=== PATIENT | male | born 1940 | race Caucasian/White ===

== ENCOUNTER 2017-12-14 07:00 | Inpatient (IN) ==
[2017-12-14] MEDS ORDERED: ALPRAZolam 0.25 MG TABLET PO PRN (08:23)
[2017-12-14] MEDS ORDERED: ALUMINUM/MAGNES/SIMETH MAX STR 30 ML UDCUP PO PRN (08:23)
[2017-12-14] MEDS ORDERED: PROMETHAZINE INJ 25 MG in SODIUM CHLORIDE 0.9% 50 ML IV PRN (08:23)
[2017-12-14] MEDS ORDERED: diphenhydrAMINE CAP 25 MG CAPSULE PO PRN (08:23)
[2017-12-14] MEDS ORDERED: MYLANTA/LIDO VISC 2:1 300 ML BOTTLE SWISH/SPIT PRN (08:23)
[2017-12-14] MEDS ORDERED: guaiFENesin 200 MG/10 ML UDCUP PO PRN (08:23)
[2017-12-14] MEDS ORDERED: chlorproMAZINE INJ 25 MG in SODIUM CHLORIDE 0.9% 100 ML IV PRN (08:23)
[2017-12-14] MEDS ORDERED: BENZTROPINE 2 MG/2 ML AMP IV PRN (08:23)
[2017-12-14] MEDS ORDERED: chlorproMAZINE 25 MG TABLET PO PRN (08:23)
[2017-12-14] MEDS ORDERED: MYLANTA/LIDO VISC 2:1 300 ML BOTTLE SWISH/SWAL PRN (08:23)
[2017-12-14] MEDS ORDERED: ONDANSETRON 4 MG/2 ML VIAL IV PRN (08:23)
[2017-12-14] MEDS ORDERED: chlorproMAZINE INJ 50 MG in SODIUM CHLORIDE 0.9% 100 ML IV PRN (08:23)
[2017-12-14] MEDS ORDERED: LOPERAMIDE 2 MG CAPSULE PO PRN ×2 (08:23)
[2017-12-14] MEDS ORDERED: traMADol 50 MG TABLET PO PRN (08:23)
[2017-12-14] MEDS ORDERED: MAGNESIUM HYDROXIDE SUSP 30 ML UDCUP PO PRN (08:23)
[2017-12-14] MEDS ORDERED: DEXAMETHASONE INJ 10 MG in SODIUM CHLORIDE 0.9% 50 ML IV ONE (12:30)
[2017-12-14] MEDS ORDERED: PALONOSETRON 0.25 MG/5 ML VIAL IV ONE (12:30)
[2017-12-14] MEDS ORDERED: DEXTROSE 5% IV ONE (13:00)
[2017-12-14] MEDS ORDERED: ARSENIC TRIOXIDE IV ONE (13:00)
[2017-12-14 13:54] LABS: Eosinophils % 0.5 % (0.00-10.9); Hematocrit 29.8 VOL% (42.0-52.0); Hemoglobin 10.3 GM/DL (14.0-18.0); Lymphocytes % 46.4 % (21.2-54.2); Mean Corpuscular HGB Conc 34.6 GM/DL (32-36); Mean Corpuscular Hemoglobin 35 PG (27-34); Mean Corpuscular Volume 100.3 FL (87-102); Mean Platelet Volume 10.6 FL (9.6-12.0); Monocytes # 0.1 10*3/uL (0.11-0.8); Monocytes % 3.4 % (1.7-12.7); Neutrophils % 49.7 % (38.7-73.9); Red Blood Count 2.97 MC/CUMM (3.8-5.5); Red Cell Distribution Width 14.5 % (9.3-17.3); White Blood Count 2.1 T/CUMM (4-12)
[2017-12-14 14:02] LABS: Platelet Count 80 T/CUMM (130-400)
[2017-12-14 14:23] LABS: Albumin 4.1 G/DL (3.4-5.0); Bilirubin,Total 2.1 MG/DL (0.2-1.0); Calcium 8.9 MG/DL (8.5-10.1); Osmolality,Calculated 282.5 MOS/KG (273-304); Potassium 4.2 MMOL/L (3.5-5.1); Total Protein 7.6 G/DL (6.4-8.3); Uric Acid 4.6 MG/DL (3.5-7.2)
[2017-12-14 14:35] LABS: INR 1.1; PT Patient Result 11.3 SECS
[2017-12-14] MEDS: TRETINOIN 10 MG CAPSULE PO SCH ×2 (14:49→21:16)
[2017-12-14 15:51] LABS: Eosinophils 1 % (0-10); Lymphocytes 47 % (20-55); Segmented Neutrophils 52 % (50-85); Total Cells Counted 100
[2017-12-14 15:52] LABS: Platelet Estimate Decreased; Polychromasia Few
[2017-12-14] MEDS: metFORMIN 500 MG TABLET PO SCH (17:34)
[2017-12-14] MEDS: SODIUM CHLORIDE 0.9% 1,000 ML IV SCH (17:34)
[2017-12-14] MEDS: CIPROFLOXACIN 500 MG TABLET PO SCH (20:55)
[2017-12-14] MEDS: TAMSULOSIN 0.4 MG CAPSULE PO SCH (20:55)
[2017-12-14] MEDS: TEMAZEPAM 7.5 MG CAPSULE PO PRN ×2 (20:55→23:16)
[2017-12-14 21:42] LABS: Apearance,Urine CLEAR (Clear); Bilirubin,Urine Negative (Negative); Blood, Urine Negative (Negative); Glucose,Urine (UA) >=500 mg/dL (Negative); Ketones,Urine Negative (Negative); Mucus,Urine Occasional /LPF (Occasional); Nitrite,Urine Negative (Negative); Protein,Urine Negative; RBC,Urine <1 /HPF (0-4); Squamous Epithelial Cell,Urine Occasional /HPF (0-10); Urine Color Yellow (Yellow); Urine Specific Gravity 1.025 (1.001-1.035); WBC,Urine <1 /HPF (0-6)
[2017-12-15 07:31] LABS: Hematocrit 25.8 VOL% (42.0-52.0); Hemoglobin 9.6 GM/DL (14.0-18.0); Immature Granulocytes % 0.5 %; Immature Granulocytes Absolute 0.01 #; Lymphocytes # 0.4 10*3/uL (1.4-4.0); Lymphocytes % 18.7 % (21.2-54.2); Mean Corpuscular HGB Conc 37.2 GM/DL (32-36); Mean Corpuscular Hemoglobin 35 PG (27-34); Mean Corpuscular Volume 95.2 FL (87-102); Mean Platelet Volume 10.8 FL (9.6-12.0); Monocytes # 0.1 10*3/uL (0.11-0.8); Monocytes % 2.9 % (1.7-12.7); Neutrophils # 1.6 10*3/uL (1.4-7.4); Neutrophils % 77.9 % (38.7-73.9); Platelet Count 64 T/CUMM (130-400); Red Blood Count 2.71 MC/CUMM (3.8-5.5); Red Cell Distribution Width 14.5 % (9.3-17.3); White Blood Count 2.1 T/CUMM (4-12)
[2017-12-15 07:48] LABS: Hypochromasia 1+
[2017-12-15 07:49] LABS: Ovalocytes Slight; Platelet Estimate Decreased
[2017-12-15] MEDS ORDERED: MAGNESIUM SULF RIDER 2 GM in PREMIX 1 EACH IV ONE (08:16)
[2017-12-15] MEDS: SERTRALINE 100 MG TABLET PO SCH (08:54)
[2017-12-15] MEDS: FINASTERIDE 5 MG TABLET PO SCH (08:54)
[2017-12-15] MEDS: METOPROLOL SUCCINATE XL 25 MG TABLET PO SCH (08:55)
[2017-12-15] MEDS: LISINOPRIL 10 MG TABLET PO SCH (08:55)
[2017-12-15] MEDS: TAMSULOSIN 0.4 MG CAPSULE PO SCH ×2 (08:56→20:01)
[2017-12-15] MEDS: metFORMIN 500 MG TABLET PO SCH ×2 (08:56→18:15)
[2017-12-15] MEDS: CIPROFLOXACIN 500 MG TABLET PO SCH ×2 (08:56→20:01)
[2017-12-15] MEDS: TRETINOIN 10 MG CAPSULE PO SCH ×2 (08:57→20:01)
[2017-12-15] MEDS ORDERED: METOPROLOL SUCCINATE XL 25 MG TABLET PO SCH (09:00)
[2017-12-15] MEDS: SODIUM CHLORIDE 0.9% 1,000 ML IV SCH (15:46)
[2017-12-15] MEDS: TEMAZEPAM 7.5 MG CAPSULE PO PRN ×2 (20:01→22:00)
[2017-12-16 05:14] LABS: Hematocrit 23.1 VOL% (42.0-52.0); Hemoglobin 8.3 GM/DL (14.0-18.0); Immature Granulocytes % 0.5 %; Immature Granulocytes Absolute 0.01 #; Lymphocytes # 0.8 10*3/uL (1.4-4.0); Lymphocytes % 36.1 % (21.2-54.2); Mean Corpuscular HGB Conc 35.9 GM/DL (32-36); Mean Corpuscular Hemoglobin 35 PG (27-34); Mean Corpuscular Volume 97.1 FL (87-102); Mean Platelet Volume 9.9 FL (9.6-12.0); Monocytes % 1.8 % (1.7-12.7); Neutrophils # 1.4 10*3/uL (1.4-7.4); Neutrophils % 61.6 % (38.7-73.9); Platelet Count 47 T/CUMM (130-400); Red Blood Count 2.38 MC/CUMM (3.8-5.5); Red Cell Distribution Width 15.2 % (9.3-17.3); White Blood Count 2.2 T/CUMM (4-12)
[2017-12-16 05:47] LABS: Albumin 3.1 G/DL (3.4-5.0); Hypochromasia 1+; Osmolality,Calculated 289.4 MOS/KG (273-304); Ovalocytes Slight; Platelet Estimate Decreased; Potassium 4.3 MMOL/L (3.5-5.1); Total Protein 5.6 G/DL (6.4-8.3)
[2017-12-16 05:48] LABS: Microcytosis Slight
[2017-12-16] MEDS ORDERED: SODIUM CHLORIDE 0.9% 1,000 ML IV PRN (07:43)
[2017-12-16] MEDS: TRETINOIN 10 MG CAPSULE PO SCH ×2 (08:22→20:44)
[2017-12-16] MEDS: FINASTERIDE 5 MG TABLET PO SCH (08:23)
[2017-12-16] MEDS: metFORMIN 500 MG TABLET PO SCH ×2 (08:24→18:21)
[2017-12-16] MEDS: SERTRALINE 100 MG TABLET PO SCH (08:24)
[2017-12-16] MEDS: LISINOPRIL 10 MG TABLET PO SCH (08:24)
[2017-12-16] MEDS: METOPROLOL SUCCINATE XL 25 MG TABLET PO SCH (08:24)
[2017-12-16] MEDS: CIPROFLOXACIN 500 MG TABLET PO SCH ×2 (08:25→20:44)
[2017-12-16] MEDS: TAMSULOSIN 0.4 MG CAPSULE PO SCH ×2 (08:25→20:45)
[2017-12-16] MEDS ORDERED: ARSENIC TRIOXIDE IV ONE (08:30)
[2017-12-16] MEDS ORDERED: DEXTROSE 5% IV ONE (08:30)
[2017-12-16] MEDS: TEMAZEPAM 7.5 MG CAPSULE PO PRN (21:01)
[2017-12-16] MEDS: SODIUM CHLORIDE 0.9% 1,000 ML IV SCH (22:35)
[2017-12-17 05:54] LABS: Eosinophils % 0.9 % (0.00-10.9); Hematocrit 29.8 VOL% (42.0-52.0); Hemoglobin 10.3 GM/DL (14.0-18.0); Immature Granulocytes % 1.9 %; Immature Granulocytes Absolute 0.04 #; Lymphocytes # 1.1 10*3/uL (1.4-4.0); Lymphocytes % 50.2 % (21.2-54.2); Mean Corpuscular HGB Conc 34.6 GM/DL (32-36); Mean Corpuscular Hemoglobin 35 PG (27-34); Mean Corpuscular Volume 100.7 FL (87-102); Mean Platelet Volume 10.9 FL (9.6-12.0); Monocytes # 0.1 10*3/uL (0.11-0.8); Monocytes % 4.2 % (1.7-12.7); NRBC # 0.02 10*3/uL; Neutrophils # 0.9 10*3/uL (1.4-7.4); Neutrophils % 42.8 % (38.7-73.9); Red Blood Count 2.96 MC/CUMM (3.8-5.5); Red Cell Distribution Width 15.9 % (9.3-17.3); White Blood Count 2.1 T/CUMM (4-12)
[2017-12-17 06:07] LABS: Platelet Count 55 T/CUMM (130-400)
[2017-12-17 06:15] LABS: Hypochromasia 1+; Ovalocytes Slight; Platelet Estimate Decreased
[2017-12-17 06:17] LABS: Microcytosis Slight
[2017-12-17] MEDS: TRETINOIN 10 MG CAPSULE PO SCH ×2 (09:05→20:16)
[2017-12-17] MEDS: SERTRALINE 100 MG TABLET PO SCH (09:06)
[2017-12-17] MEDS: FINASTERIDE 5 MG TABLET PO SCH (09:07)
[2017-12-17] MEDS: metFORMIN 500 MG TABLET PO SCH ×2 (09:07→17:50)
[2017-12-17] MEDS: METOPROLOL SUCCINATE XL 25 MG TABLET PO SCH (09:07)
[2017-12-17] MEDS: TAMSULOSIN 0.4 MG CAPSULE PO SCH ×2 (09:08→20:17)
[2017-12-17] MEDS: CIPROFLOXACIN 500 MG TABLET PO SCH ×2 (09:08→20:17)
[2017-12-17] MEDS: LISINOPRIL 10 MG TABLET PO SCH (09:17)
[2017-12-17] MEDS: ARSENIC TRIOXIDE IV SCH (10:25)
[2017-12-17] MEDS: DEXTROSE 5% IV SCH (10:25)
[2017-12-17] MEDS ORDERED: DOCUSATE SODIUM 100 MG CAPSULE PO PRN (10:36)
[2017-12-17] MEDS: SODIUM CHLORIDE 0.9% 1,000 ML IV SCH (20:29)
[2017-12-17] MEDS: TEMAZEPAM 7.5 MG CAPSULE PO PRN (20:29)
[2017-12-18 05:21] LABS: Basophils % 0.4 % (0.0-0.8); Eosinophils % 0.8 % (0.00-10.9); Hematocrit 28.8 VOL% (42.0-52.0); Hemoglobin 10.1 GM/DL (14.0-18.0); Immature Granulocytes % 4.6 %; Immature Granulocytes Absolute 0.11 #; Lymphocytes # 0.7 10*3/uL (1.4-4.0); Lymphocytes % 29.5 % (21.2-54.2); Mean Corpuscular HGB Conc 35.1 GM/DL (32-36); Mean Corpuscular Hemoglobin 34 PG (27-34); Mean Corpuscular Volume 97.6 FL (87-102); Mean Platelet Volume 11.2 FL (9.6-12.0); Monocytes # 0.2 10*3/uL (0.11-0.8); Monocytes % 6.3 % (1.7-12.7); NRBC # 0.02 10*3/uL; Neutrophils # 1.4 10*3/uL (1.4-7.4); Neutrophils % 58.4 % (38.7-73.9); Platelet Count 62 T/CUMM (130-400); Red Blood Count 2.95 MC/CUMM (3.8-5.5); Red Cell Distribution Width 15.6 % (9.3-17.3); White Blood Count 2.4 T/CUMM (4-12)
[2017-12-18 05:54] LABS: Albumin 3.1 G/DL (3.4-5.0); Bilirubin,Total 0.6 MG/DL (0.2-1.0); Calcium 7.8 MG/DL (8.5-10.1); Osmolality,Calculated 286.4 MOS/KG (273-304); Potassium 4.4 MMOL/L (3.5-5.1); Total Protein 5.7 G/DL (6.4-8.3)
[2017-12-18 06:54] LABS: Hypochromasia 1+; Macrocytosis 1+; Polychromasia Slight
[2017-12-18 06:55] LABS: Elliptocytes 1+
[2017-12-18] MEDS: TAMSULOSIN 0.4 MG CAPSULE PO SCH ×2 (08:51→20:38)
[2017-12-18] MEDS: FINASTERIDE 5 MG TABLET PO SCH (08:51)
[2017-12-18] MEDS: metFORMIN 500 MG TABLET PO SCH ×2 (08:51→17:13)
[2017-12-18] MEDS: TRETINOIN 10 MG CAPSULE PO SCH ×2 (08:51→20:38)
[2017-12-18] MEDS: METOPROLOL SUCCINATE XL 25 MG TABLET PO SCH (08:51)
[2017-12-18] MEDS: CIPROFLOXACIN 500 MG TABLET PO SCH ×2 (08:53→20:38)
[2017-12-18] MEDS: LISINOPRIL 10 MG TABLET PO SCH (08:53)
[2017-12-18] MEDS: MAGNESIUM OXIDE 400 MG TABLET PO SCH ×2 (08:53→20:38)
[2017-12-18] MEDS: SERTRALINE 100 MG TABLET PO SCH (08:53)
[2017-12-18] MEDS: SODIUM CHLORIDE 0.45% 1,000 ML IV SCH (09:02)
[2017-12-18] MEDS: DEXTROSE 5% IV SCH (14:14)
[2017-12-18] MEDS: ARSENIC TRIOXIDE IV SCH (14:14)
[2017-12-18] MEDS: SODIUM CHLORIDE 0.9% 1,000 ML IV SCH (17:33)
[2017-12-18] MEDS: TEMAZEPAM 7.5 MG CAPSULE PO PRN (20:38)
[2017-12-19 04:45] LABS: Eosinophils % 0.4 % (0.00-10.9); Hemoglobin 10.6 GM/DL (14.0-18.0); Immature Granulocytes % 8.4 %; Immature Granulocytes Absolute 0.21 #; Lymphocytes # 0.5 10*3/uL (1.4-4.0); Lymphocytes % 19.3 % (21.2-54.2); Mean Corpuscular HGB Conc 36.6 GM/DL (32-36); Mean Corpuscular Hemoglobin 35 PG (27-34); Mean Corpuscular Volume 95.7 FL (87-102); Mean Platelet Volume 10.9 FL (9.6-12.0); Monocytes # 0.2 10*3/uL (0.11-0.8); Monocytes % 7.6 % (1.7-12.7); Neutrophils # 1.6 10*3/uL (1.4-7.4); Neutrophils % 64.3 % (38.7-73.9); Red Blood Count 3.03 MC/CUMM (3.8-5.5); White Blood Count 2.5 T/CUMM (4-12)
[2017-12-19 04:46] LABS: Platelet Count 56 T/CUMM (130-400)
[2017-12-19 06:37] LABS: Band Neutrophils 1 % (0-10); Hypochromasia 1+; Lymphocytes 20 % (20-55); Macrocytosis Slight; Nucleated Red Blood Cells 1 (0-5); Platelet Estimate Decreased; Polychromasia Slight; Segmented Neutrophils 72 % (50-85); Total Cells Counted 100
[2017-12-19] MEDS: TRETINOIN 10 MG CAPSULE PO SCH ×2 (10:23→20:21)
[2017-12-19] MEDS: MAGNESIUM OXIDE 400 MG TABLET PO SCH ×2 (10:23→20:21)
[2017-12-19] MEDS: LISINOPRIL 10 MG TABLET PO SCH (10:23)
[2017-12-19] MEDS: METOPROLOL SUCCINATE XL 25 MG TABLET PO SCH (10:23)
[2017-12-19] MEDS: CIPROFLOXACIN 500 MG TABLET PO SCH ×2 (10:24→20:21)
[2017-12-19] MEDS: FINASTERIDE 5 MG TABLET PO SCH (10:24)
[2017-12-19] MEDS: SERTRALINE 100 MG TABLET PO SCH (10:24)
[2017-12-19] MEDS: TAMSULOSIN 0.4 MG CAPSULE PO SCH ×2 (10:24→20:21)
[2017-12-19] MEDS: metFORMIN 500 MG TABLET PO SCH ×2 (10:24→17:17)
[2017-12-19] MEDS: DEXTROSE 5% IV SCH (11:12)
[2017-12-19] MEDS: ARSENIC TRIOXIDE IV SCH (11:12)
[2017-12-19] MEDS: SODIUM CHLORIDE 0.45% 1,000 ML IV SCH (11:19)
[2017-12-19] MEDS: ACETAMINOPHEN 325 MG TABLET PO PRN (17:17)
[2017-12-19] MEDS: TEMAZEPAM 7.5 MG CAPSULE PO PRN (20:21)
[2017-12-20 06:13] LABS: Eosinophils % 0.4 % (0.00-10.9); Hematocrit 29.4 VOL% (42.0-52.0); Hemoglobin 10.7 GM/DL (14.0-18.0); Immature Granulocytes % 14.9 %; Immature Granulocytes Absolute 0.37 #; Lymphocytes # 0.4 10*3/uL (1.4-4.0); Lymphocytes % 15.7 % (21.2-54.2); Mean Corpuscular HGB Conc 36.4 GM/DL (32-36); Mean Corpuscular Hemoglobin 35 PG (27-34); Mean Corpuscular Volume 96.1 FL (87-102); Mean Platelet Volume 11.1 FL (9.6-12.0); Monocytes # 0.4 10*3/uL (0.11-0.8); Monocytes % 15.3 % (1.7-12.7); NRBC # 0.02 10*3/uL; Neutrophils # 1.3 10*3/uL (1.4-7.4); Neutrophils % 53.7 % (38.7-73.9); Red Blood Count 3.06 MC/CUMM (3.8-5.5); White Blood Count 2.5 T/CUMM (4-12)
[2017-12-20 06:16] LABS: Platelet Count 60 T/CUMM (130-400)
[2017-12-20 06:40] LABS: Band Neutrophils 2 % (0-10); Hypochromasia Slight; Lymphocytes 21 % (20-55); Macrocytosis Slight; Nucleated Red Blood Cells 1 (0-5); Ovalocytes Slight; Platelet Estimate Decreased; Segmented Neutrophils 61 % (50-85); Total Cells Counted 100
[2017-12-20 06:45] LABS: Bilirubin,Total 1.6 MG/DL (0.2-1.0); Calcium 8.2 MG/DL (8.5-10.1); Potassium 3.9 MMOL/L (3.5-5.1); Total Protein 6.4 G/DL (6.4-8.3)
[2017-12-20] MEDS: TAMSULOSIN 0.4 MG CAPSULE PO SCH ×2 (10:11→20:06)
[2017-12-20] MEDS: CIPROFLOXACIN 500 MG TABLET PO SCH ×2 (10:11→20:06)
[2017-12-20] MEDS: metFORMIN 500 MG TABLET PO SCH ×2 (10:11→17:32)
[2017-12-20] MEDS: MAGNESIUM OXIDE 400 MG TABLET PO SCH ×2 (10:11→20:05)
[2017-12-20] MEDS: METOPROLOL SUCCINATE XL 25 MG TABLET PO SCH (10:11)
[2017-12-20] MEDS: TRETINOIN 10 MG CAPSULE PO SCH ×2 (10:11→20:06)
[2017-12-20] MEDS: FINASTERIDE 5 MG TABLET PO SCH (10:12)
[2017-12-20] MEDS: SERTRALINE 100 MG TABLET PO SCH (10:12)
[2017-12-20] MEDS: LISINOPRIL 10 MG TABLET PO SCH (10:12)
[2017-12-20] MEDS: DOCUSATE SODIUM 100 MG CAPSULE PO SCH ×2 (10:12→20:06)
[2017-12-20] MEDS: SODIUM CHLORIDE 0.45% 1,000 ML IV SCH (10:20)
[2017-12-20] MEDS: DEXTROSE 5% IV SCH (10:26)
[2017-12-20] MEDS: ARSENIC TRIOXIDE IV SCH (10:26)
[2017-12-20] MEDS: ACETAMINOPHEN 325 MG TABLET PO PRN (15:14)
[2017-12-20] MEDS: TEMAZEPAM 7.5 MG CAPSULE PO PRN (22:05)
[2017-12-21 07:44] LABS: Eosinophils % 0.6 % (0.00-10.9); Hematocrit 28.1 VOL% (42.0-52.0); Hemoglobin 9.8 GM/DL (14.0-18.0); Immature Granulocytes % 30.1 %; Immature Granulocytes Absolute 1.02 #; Lymphocytes # 0.5 10*3/uL (1.4-4.0); Lymphocytes % 15.6 % (21.2-54.2); Mean Corpuscular HGB Conc 34.9 GM/DL (32-36); Mean Corpuscular Hemoglobin 34 PG (27-34); Mean Corpuscular Volume 96.9 FL (87-102); Mean Platelet Volume 10.9 FL (9.6-12.0); Monocytes # 0.2 10*3/uL (0.11-0.8); Monocytes % 6.5 % (1.7-12.7); Neutrophils # 1.6 10*3/uL (1.4-7.4); Neutrophils % 47.2 % (38.7-73.9); Platelet Count 68 T/CUMM (130-400); Red Cell Distribution Width 14.9 % (9.3-17.3); White Blood Count 3.4 T/CUMM (4-12)
[2017-12-21 09:07] LABS: Band Neutrophils 10 % (0-10); Lymphocytes 43 % (20-55); Nucleated Red Blood Cells 1 (0-5); Platelet Estimate Decreased; Segmented Neutrophils 44 % (50-85); Total Cells Counted 100
[2017-12-21 09:08] LABS: Anisocytosis 1+; Polychromasia Slight
[2017-12-21] MEDS: TRETINOIN 10 MG CAPSULE PO SCH ×2 (09:22→20:54)
[2017-12-21] MEDS: METOPROLOL SUCCINATE XL 25 MG TABLET PO SCH (09:22)
[2017-12-21] MEDS: DOCUSATE SODIUM 100 MG CAPSULE PO SCH ×2 (09:23→20:54)
[2017-12-21] MEDS: metFORMIN 500 MG TABLET PO SCH ×2 (09:23→17:25)
[2017-12-21] MEDS: TAMSULOSIN 0.4 MG CAPSULE PO SCH ×2 (09:23→20:54)
[2017-12-21] MEDS: SERTRALINE 100 MG TABLET PO SCH (09:24)
[2017-12-21] MEDS: FINASTERIDE 5 MG TABLET PO SCH (09:24)
[2017-12-21] MEDS: LISINOPRIL 10 MG TABLET PO SCH (09:24)
[2017-12-21] MEDS: CIPROFLOXACIN 500 MG TABLET PO SCH ×2 (09:24→20:54)
[2017-12-21] MEDS: MAGNESIUM OXIDE 400 MG TABLET PO SCH ×2 (09:24→20:53)
[2017-12-21] MEDS: SODIUM CHLORIDE 0.45% 1,000 ML IV SCH (09:26)
[2017-12-21] MEDS: DEXTROSE 5% IV SCH (10:52)
[2017-12-21] MEDS: ARSENIC TRIOXIDE IV SCH (10:52)
[2017-12-21] MEDS: TEMAZEPAM 7.5 MG CAPSULE PO PRN (21:00)
[2017-12-22 05:07] LABS: Eosinophils # 0.4 10*3/uL (0.0-0.87); Eosinophils % 17.1 % (0.00-10.9); Hematocrit 25.9 VOL% (42.0-52.0); Hemoglobin 9.1 GM/DL (14.0-18.0); Immature Granulocytes % 8.8 %; Immature Granulocytes Absolute 0.22 #; Lymphocytes # 0.6 10*3/uL (1.4-4.0); Lymphocytes % 25.5 % (21.2-54.2); Mean Corpuscular HGB Conc 35.1 GM/DL (32-36); Mean Corpuscular Hemoglobin 34 PG (27-34); Mean Corpuscular Volume 97.4 FL (87-102); Mean Platelet Volume 10.3 FL (9.6-12.0); Monocytes # 0.3 10*3/uL (0.11-0.8); Monocytes % 13.1 % (1.7-12.7); Neutrophils # 0.9 10*3/uL (1.4-7.4); Neutrophils % 35.5 % (38.7-73.9); Platelet Count 68 T/CUMM (130-400); Red Blood Count 2.66 MC/CUMM (3.8-5.5); White Blood Count 2.5 T/CUMM (4-12)
[2017-12-22 05:53] LABS: Eosinophils 2 % (0-10); Lymphocytes 59 % (20-55); Myelocytes 1 %; Segmented Neutrophils 29 % (50-85); Total Cells Counted 100
[2017-12-22 05:54] LABS: Atypical Lymphocytes Few
[2017-12-22 05:55] LABS: Ovalocytes Few; Polychromasia Slight
[2017-12-22 05:56] LABS: Hypochromasia Slight; Macrocytosis Slight; Platelet Estimate Decreased
[2017-12-22] MEDS: TRETINOIN 10 MG CAPSULE PO SCH ×2 (08:36→21:07)
[2017-12-22] MEDS: METOPROLOL SUCCINATE XL 25 MG TABLET PO SCH (08:36)
[2017-12-22] MEDS: DOCUSATE SODIUM 100 MG CAPSULE PO SCH ×2 (08:37→21:07)
[2017-12-22] MEDS: FINASTERIDE 5 MG TABLET PO SCH (08:37)
[2017-12-22] MEDS: MAGNESIUM OXIDE 400 MG TABLET PO SCH ×2 (08:37→21:06)
[2017-12-22] MEDS: metFORMIN 500 MG TABLET PO SCH ×2 (08:37→17:07)
[2017-12-22] MEDS: TAMSULOSIN 0.4 MG CAPSULE PO SCH ×2 (08:38→21:07)
[2017-12-22] MEDS: LISINOPRIL 10 MG TABLET PO SCH (08:38)
[2017-12-22] MEDS: CIPROFLOXACIN 500 MG TABLET PO SCH ×2 (08:38→21:07)
[2017-12-22] MEDS: ARSENIC TRIOXIDE IV SCH (10:14)
[2017-12-22] MEDS: DEXTROSE 5% IV SCH (10:14)
[2017-12-22] MEDS: SODIUM CHLORIDE 0.45% 1,000 ML IV SCH (10:14)
[2017-12-22] MEDS: SERTRALINE 100 MG TABLET PO SCH (10:34)
[2017-12-22] MEDS: TEMAZEPAM 7.5 MG CAPSULE PO PRN (21:17)
[2017-12-23 06:01] LABS: Albumin 2.7 G/DL (3.4-5.0); Bilirubin,Total 1.1 MG/DL (0.2-1.0); Calcium 8.3 MG/DL (8.5-10.1); Osmolality,Calculated 281.4 MOS/KG (273-304); Potassium 4.2 MMOL/L (3.5-5.1); Total Protein 6.1 G/DL (6.4-8.3)
[2017-12-23] MEDS: METOPROLOL SUCCINATE XL 25 MG TABLET PO SCH (09:10)
[2017-12-23] MEDS: metFORMIN 500 MG TABLET PO SCH ×2 (09:10→18:23)
[2017-12-23] MEDS: FINASTERIDE 5 MG TABLET PO SCH (09:10)
[2017-12-23] MEDS: LISINOPRIL 10 MG TABLET PO SCH (09:10)
[2017-12-23] MEDS: VORICONAZOLE 200 MG TABLET PO SCH (09:10)
[2017-12-23] MEDS: CIPROFLOXACIN 500 MG TABLET PO SCH ×2 (09:10→20:07)
[2017-12-23] MEDS: SERTRALINE 100 MG TABLET PO SCH (09:10)
[2017-12-23] MEDS: TRETINOIN 10 MG CAPSULE PO SCH ×2 (09:10→20:06)
[2017-12-23] MEDS: DOCUSATE SODIUM 100 MG CAPSULE PO SCH ×2 (09:11→20:07)
[2017-12-23] MEDS: TAMSULOSIN 0.4 MG CAPSULE PO SCH ×2 (09:11→20:07)
[2017-12-23] MEDS: MAGNESIUM OXIDE 400 MG TABLET PO SCH ×2 (09:11→20:07)
[2017-12-23] MEDS: SODIUM CHLORIDE 0.45% 1,000 ML IV SCH (09:11)
[2017-12-23 12:07] LABS: Basophils % 0.7 % (0.0-0.8); Eosinophils # 0.3 10*3/uL (0.0-0.87); Eosinophils % 9.5 % (0.00-10.9); Hematocrit 28.5 VOL% (42.0-52.0); Hemoglobin 9.5 GM/DL (14.0-18.0); Immature Granulocytes % 8.1 %; Immature Granulocytes Absolute 0.23 #; Lymphocytes # 0.6 10*3/uL (1.4-4.0); Lymphocytes % 22.2 % (21.2-54.2); Mean Corpuscular HGB Conc 33.3 GM/DL (32-36); Mean Corpuscular Hemoglobin 34 PG (27-34); Mean Corpuscular Volume 100.7 FL (87-102); Mean Platelet Volume 10.2 FL (9.6-12.0); Monocytes # 0.2 10*3/uL (0.11-0.8); Monocytes % 7.7 % (1.7-12.7); Neutrophils # 1.5 10*3/uL (1.4-7.4); Neutrophils % 51.8 % (38.7-73.9); Platelet Count 77 T/CUMM (130-400); Red Blood Count 2.83 MC/CUMM (3.8-5.5); Red Cell Distribution Width 15.4 % (9.3-17.3); White Blood Count 2.8 T/CUMM (4-12)
[2017-12-23 12:29] LABS: Band Neutrophils 6 % (0-10); Eosinophils 1 % (0-10); Lymphocytes 65 % (20-55); Nucleated Red Blood Cells 1 (0-5); Segmented Neutrophils 14 % (50-85); Total Cells Counted 100
[2017-12-23 12:30] LABS: Atypical Lymphocytes Few; Hypochromasia Slight; Macrocytosis Slight; Ovalocytes Slight; Platelet Estimate Decreased
[2017-12-23] MEDS: DEXTROSE 5% IV SCH (18:23)
[2017-12-23] MEDS: ARSENIC TRIOXIDE IV SCH (18:23)
[2017-12-23] MEDS: TEMAZEPAM 7.5 MG CAPSULE PO PRN (20:07)
[2017-12-24 07:16] LABS: Basophils % 0.3 % (0.0-0.8); Eosinophils # 0.4 10*3/uL (0.0-0.87); Eosinophils % 11.7 % (0.00-10.9); Hematocrit 28.2 VOL% (42.0-52.0); Hemoglobin 9.7 GM/DL (14.0-18.0); Immature Granulocytes % 1.3 %; Immature Granulocytes Absolute 0.04 #; Lymphocytes # 0.8 10*3/uL (1.4-4.0); Lymphocytes % 24.6 % (21.2-54.2); Mean Corpuscular HGB Conc 34.4 GM/DL (32-36); Mean Corpuscular Hemoglobin 34 PG (27-34); Mean Corpuscular Volume 98.3 FL (87-102); Mean Platelet Volume 10.3 FL (9.6-12.0); Monocytes # 0.2 10*3/uL (0.11-0.8); Monocytes % 7.8 % (1.7-12.7); Neutrophils # 1.7 10*3/uL (1.4-7.4); Neutrophils % 54.3 % (38.7-73.9); Platelet Count 81 T/CUMM (130-400); Red Blood Count 2.87 MC/CUMM (3.8-5.5); Red Cell Distribution Width 14.9 % (9.3-17.3); White Blood Count 3.1 T/CUMM (4-12)
[2017-12-24 08:01] LABS: Band Neutrophils 3 % (0-10); Eosinophils 2 % (0-10); Hypochromasia Slight; Lymphocytes 53 % (20-55); Ovalocytes Few; Segmented Neutrophils 22 % (50-85); Total Cells Counted 100
[2017-12-24] MEDS: SODIUM CHLORIDE 0.45% 1,000 ML IV SCH (08:20)
[2017-12-24] MEDS: TRETINOIN 10 MG CAPSULE PO SCH ×2 (08:21→21:08)
[2017-12-24] MEDS: SERTRALINE 100 MG TABLET PO SCH (08:21)
[2017-12-24] MEDS: MAGNESIUM OXIDE 400 MG TABLET PO SCH ×2 (08:21→21:07)
[2017-12-24] MEDS: CIPROFLOXACIN 500 MG TABLET PO SCH ×2 (08:21→21:08)
[2017-12-24] MEDS: DOCUSATE SODIUM 100 MG CAPSULE PO SCH ×2 (08:22→21:07)
[2017-12-24] MEDS: metFORMIN 500 MG TABLET PO SCH ×2 (08:22→21:07)
[2017-12-24] MEDS: METOPROLOL SUCCINATE XL 25 MG TABLET PO SCH (08:22)
[2017-12-24] MEDS: FINASTERIDE 5 MG TABLET PO SCH (08:22)
[2017-12-24] MEDS: VORICONAZOLE 200 MG TABLET PO SCH (08:22)
[2017-12-24] MEDS: LISINOPRIL 10 MG TABLET PO SCH (08:22)
[2017-12-24] MEDS: TAMSULOSIN 0.4 MG CAPSULE PO SCH ×2 (08:22→21:08)
[2017-12-24] MEDS: ARSENIC TRIOXIDE IV SCH (11:16)
[2017-12-24] MEDS: DEXTROSE 5% IV SCH (11:16)
[2017-12-24] MEDS: TEMAZEPAM 7.5 MG CAPSULE PO PRN (21:07)
[2017-12-25] MEDS: SODIUM CHLORIDE 0.45% 1,000 ML IV SCH (02:18)
[2017-12-25 05:28] LABS: Basophils % 0.3 % (0.0-0.8); Eosinophils % 0.6 % (0.00-10.9); Hemoglobin 9.7 GM/DL (14.0-18.0); Immature Granulocytes % 23.6 %; Immature Granulocytes Absolute 0.85 #; Lymphocytes % 27.2 % (21.2-54.2); Mean Corpuscular HGB Conc 35.9 GM/DL (32-36); Mean Corpuscular Hemoglobin 34 PG (27-34); Mean Corpuscular Volume 95.7 FL (87-102); Mean Platelet Volume 9.9 FL (9.6-12.0); Monocytes # 0.3 10*3/uL (0.11-0.8); Monocytes % 8.3 % (1.7-12.7); NRBC # 0.02 10*3/uL; Neutrophils # 1.4 10*3/uL (1.4-7.4); Platelet Count 81 T/CUMM (130-400); Red Blood Count 2.82 MC/CUMM (3.8-5.5); Red Cell Distribution Width 14.8 % (9.3-17.3); White Blood Count 3.6 T/CUMM (4-12)
[2017-12-25 05:52] LABS: Band Neutrophils 9 % (0-10); Lymphocytes 45 % (20-55); Myelocytes 2 %; Platelet Estimate Decreased; Segmented Neutrophils 32 % (50-85); Total Cells Counted 100
[2017-12-25 05:53] LABS: Atypical Lymphocytes Few; Hypochromasia Slight; Ovalocytes Slight
[2017-12-25] MEDS: TRETINOIN 10 MG CAPSULE PO SCH ×2 (08:31→21:03)
[2017-12-25] MEDS: metFORMIN 500 MG TABLET PO SCH ×2 (08:31→17:05)
[2017-12-25] MEDS: MAGNESIUM OXIDE 400 MG TABLET PO SCH ×2 (08:31→21:04)
[2017-12-25] MEDS: METOPROLOL SUCCINATE XL 25 MG TABLET PO SCH (08:32)
[2017-12-25] MEDS: FINASTERIDE 5 MG TABLET PO SCH (08:32)
[2017-12-25] MEDS: SERTRALINE 100 MG TABLET PO SCH (08:32)
[2017-12-25] MEDS: CIPROFLOXACIN 500 MG TABLET PO SCH ×2 (08:32→21:05)
[2017-12-25] MEDS: LISINOPRIL 10 MG TABLET PO SCH (08:32)
[2017-12-25] MEDS: TAMSULOSIN 0.4 MG CAPSULE PO SCH ×2 (08:32→21:04)
[2017-12-25] MEDS: VORICONAZOLE 200 MG TABLET PO SCH (08:32)
[2017-12-25] MEDS: DOCUSATE SODIUM 100 MG CAPSULE PO SCH ×2 (08:32→21:04)
[2017-12-25] MEDS: ARSENIC TRIOXIDE IV SCH (11:48)
[2017-12-25] MEDS: DEXTROSE 5% IV SCH (11:48)
[2017-12-25] MEDS: TEMAZEPAM 7.5 MG CAPSULE PO PRN (21:07)
[2017-12-26 05:24] LABS: Eosinophils # 0.6 10*3/uL (0.0-0.87); Eosinophils % 21.6 % (0.00-10.9); Hematocrit 26.4 VOL% (42.0-52.0); Immature Granulocytes % 16.1 %; Immature Granulocytes Absolute 0.44 #; Lymphocytes # 0.7 10*3/uL (1.4-4.0); Lymphocytes % 23.8 % (21.2-54.2); Mean Corpuscular HGB Conc 34.1 GM/DL (32-36); Mean Corpuscular Hemoglobin 34 PG (27-34); Monocytes # 0.1 10*3/uL (0.11-0.8); Monocytes % 3.3 % (1.7-12.7); Neutrophils % 35.2 % (38.7-73.9); Red Blood Count 2.64 MC/CUMM (3.8-5.5); Red Cell Distribution Width 14.8 % (9.3-17.3); White Blood Count 2.7 T/CUMM (4-12)
[2017-12-26 05:28] LABS: Platelet Count 76 T/CUMM (130-400)
[2017-12-26 06:00] LABS: Albumin 2.6 G/DL (3.4-5.0); Bilirubin,Total 0.7 MG/DL (0.2-1.0); Calcium 8.4 MG/DL (8.5-10.1); Osmolality,Calculated 290.1 MOS/KG (273-304); Potassium 3.5 MMOL/L (3.5-5.1); Total Protein 6.1 G/DL (6.4-8.3)
[2017-12-26 06:30] LABS: Lymphocytes 51 % (20-55); Metamyelocytes 1 %; Myelocytes 9 %; Segmented Neutrophils 30 % (50-85); Total Cells Counted 100
[2017-12-26 06:31] LABS: Atypical Lymphocytes Few; Macrocytosis Slight; Ovalocytes Slight
[2017-12-26 06:32] LABS: Platelet Estimate Decreased
[2017-12-26] MEDS: MAGNESIUM OXIDE 400 MG TABLET PO SCH ×2 (08:50→20:33)
[2017-12-26] MEDS: METOPROLOL SUCCINATE XL 25 MG TABLET PO SCH (08:50)
[2017-12-26] MEDS: TRETINOIN 10 MG CAPSULE PO SCH ×2 (08:50→20:33)
[2017-12-26] MEDS: LISINOPRIL 10 MG TABLET PO SCH (08:51)
[2017-12-26] MEDS: TAMSULOSIN 0.4 MG CAPSULE PO SCH ×2 (08:51→20:33)
[2017-12-26] MEDS: FINASTERIDE 5 MG TABLET PO SCH (08:51)
[2017-12-26] MEDS: DOCUSATE SODIUM 100 MG CAPSULE PO SCH ×2 (08:51→20:33)
[2017-12-26] MEDS: CIPROFLOXACIN 500 MG TABLET PO SCH ×2 (08:51→20:33)
[2017-12-26] MEDS: SERTRALINE 100 MG TABLET PO SCH (08:51)
[2017-12-26] MEDS: metFORMIN 500 MG TABLET PO SCH ×2 (08:52→17:52)
[2017-12-26] MEDS: VORICONAZOLE 200 MG TABLET PO SCH (09:49)
[2017-12-26] MEDS: ARSENIC TRIOXIDE IV SCH (10:58)
[2017-12-26] MEDS: DEXTROSE 5% IV SCH (10:58)
[2017-12-26] MEDS: TEMAZEPAM 7.5 MG CAPSULE PO PRN (20:33)
[2017-12-27 04:59] LABS: Eosinophils % 1.2 % (0.00-10.9); Hematocrit 25.8 VOL% (42.0-52.0); Hemoglobin 8.9 GM/DL (14.0-18.0); Immature Granulocytes % 13.9 %; Immature Granulocytes Absolute 0.46 #; Lymphocytes # 0.8 10*3/uL (1.4-4.0); Lymphocytes % 24.8 % (21.2-54.2); Mean Corpuscular HGB Conc 34.5 GM/DL (32-36); Mean Corpuscular Hemoglobin 34 PG (27-34); Mean Corpuscular Volume 99.6 FL (87-102); Mean Platelet Volume 10.3 FL (9.6-12.0); Monocytes # 0.1 10*3/uL (0.11-0.8); Monocytes % 3.3 % (1.7-12.7); Neutrophils # 1.9 10*3/uL (1.4-7.4); Neutrophils % 56.8 % (38.7-73.9); Platelet Count 75 T/CUMM (130-400); Red Blood Count 2.59 MC/CUMM (3.8-5.5); Red Cell Distribution Width 14.8 % (9.3-17.3); White Blood Count 3.3 T/CUMM (4-12)
[2017-12-27 05:50] LABS: Anisocytosis 1+; Band Neutrophils 16 % (0-10); Eosinophils 2 % (0-10); Lymphocytes 26 % (20-55); Myelocytes 2 %; Segmented Neutrophils 44 % (50-85); Total Cells Counted 100
[2017-12-27 05:51] LABS: Ovalocytes 1+; Poikilocytosis 1+; Polychromasia Slight
[2017-12-27] MEDS: MAGNESIUM OXIDE 400 MG TABLET PO SCH ×2 (08:23→20:35)
[2017-12-27] MEDS: METOPROLOL SUCCINATE XL 25 MG TABLET PO SCH (08:23)
[2017-12-27] MEDS: VORICONAZOLE 200 MG TABLET PO SCH (08:24)
[2017-12-27] MEDS: LISINOPRIL 10 MG TABLET PO SCH (08:24)
[2017-12-27] MEDS: DOCUSATE SODIUM 100 MG CAPSULE PO SCH ×2 (08:24→20:35)
[2017-12-27] MEDS: TAMSULOSIN 0.4 MG CAPSULE PO SCH ×2 (08:24→20:35)
[2017-12-27] MEDS: TRETINOIN 10 MG CAPSULE PO SCH ×2 (08:25→20:35)
[2017-12-27] MEDS: FINASTERIDE 5 MG TABLET PO SCH (08:25)
[2017-12-27] MEDS: SERTRALINE 100 MG TABLET PO SCH (08:25)
[2017-12-27] MEDS: CIPROFLOXACIN 500 MG TABLET PO SCH ×2 (08:25→20:35)
[2017-12-27] MEDS: metFORMIN 500 MG TABLET PO SCH ×2 (08:25→17:05)
[2017-12-27] MEDS: DEXTROSE 5% IV SCH (11:11)
[2017-12-27] MEDS: ARSENIC TRIOXIDE IV SCH (11:11)
[2017-12-27] MEDS: TEMAZEPAM 7.5 MG CAPSULE PO PRN (20:36)
[2017-12-28 04:32] LABS: Basophils % 0.3 % (0.0-0.8); Eosinophils % 0.9 % (0.00-10.9); Hematocrit 25.5 VOL% (42.0-52.0); Hemoglobin 8.8 GM/DL (14.0-18.0); Immature Granulocytes % 12.2 %; Immature Granulocytes Absolute 0.43 #; Lymphocytes # 0.9 10*3/uL (1.4-4.0); Lymphocytes % 26.7 % (21.2-54.2); Mean Corpuscular HGB Conc 34.5 GM/DL (32-36); Mean Corpuscular Hemoglobin 34 PG (27-34); Mean Corpuscular Volume 98.8 FL (87-102); Monocytes # 0.1 10*3/uL (0.11-0.8); Monocytes % 2.6 % (1.7-12.7); Neutrophils % 57.3 % (38.7-73.9); Platelet Count 81 T/CUMM (130-400); Red Blood Count 2.58 MC/CUMM (3.8-5.5); Red Cell Distribution Width 14.6 % (9.3-17.3); White Blood Count 3.5 T/CUMM (4-12)
[2017-12-28 05:21] LABS: Band Neutrophils 9 % (0-10); Eosinophils 2 % (0-10); Hypochromasia 1+; Lymphocytes 32 % (20-55); Metamyelocytes 1 %; Myelocytes 8 %; Ovalocytes Slight; Platelet Estimate Decreased; Segmented Neutrophils 39 % (50-85); Total Cells Counted 100
[2017-12-28 05:22] LABS: Atypical Lymphocytes Few; Macrocytosis Slight; Polychromasia Slight
[2017-12-28] MEDS: CIPROFLOXACIN 500 MG TABLET PO SCH ×2 (09:48→20:59)
[2017-12-28] MEDS: MAGNESIUM OXIDE 400 MG TABLET PO SCH ×2 (09:48→20:59)
[2017-12-28] MEDS: LISINOPRIL 10 MG TABLET PO SCH (09:48)
[2017-12-28] MEDS: TRETINOIN 10 MG CAPSULE PO SCH ×2 (09:48→20:59)
[2017-12-28] MEDS: METOPROLOL SUCCINATE XL 25 MG TABLET PO SCH (09:48)
[2017-12-28] MEDS: TAMSULOSIN 0.4 MG CAPSULE PO SCH ×2 (09:48→20:59)
[2017-12-28] MEDS: VORICONAZOLE 200 MG TABLET PO SCH (09:49)
[2017-12-28] MEDS: SERTRALINE 100 MG TABLET PO SCH (09:49)
[2017-12-28] MEDS: metFORMIN 500 MG TABLET PO SCH ×2 (09:49→17:50)
[2017-12-28] MEDS: FINASTERIDE 5 MG TABLET PO SCH (09:49)
[2017-12-28] MEDS: DOCUSATE SODIUM 100 MG CAPSULE PO SCH ×2 (09:49→20:59)
[2017-12-28] MEDS: ARSENIC TRIOXIDE IV SCH (11:16)
[2017-12-28] MEDS: DEXTROSE 5% IV SCH (11:16)
[2017-12-28] MEDS: TEMAZEPAM 7.5 MG CAPSULE PO PRN (20:59)
[2017-12-29 05:28] LABS: Eosinophils % 1.2 % (0.00-10.9); Hematocrit 25.8 VOL% (42.0-52.0); Hemoglobin 8.7 GM/DL (14.0-18.0); Immature Granulocytes % 11.5 %; Immature Granulocytes Absolute 0.37 #; Lymphocytes # 0.9 10*3/uL (1.4-4.0); Lymphocytes % 28.2 % (21.2-54.2); Mean Corpuscular HGB Conc 33.7 GM/DL (32-36); Mean Corpuscular Hemoglobin 34 PG (27-34); Mean Corpuscular Volume 100.8 FL (87-102); Mean Platelet Volume 9.6 FL (9.6-12.0); Monocytes # 0.1 10*3/uL (0.11-0.8); Monocytes % 2.2 % (1.7-12.7); Neutrophils # 1.8 10*3/uL (1.4-7.4); Neutrophils % 56.9 % (38.7-73.9); Platelet Count 78 T/CUMM (130-400); Red Blood Count 2.56 MC/CUMM (3.8-5.5); Red Cell Distribution Width 14.8 % (9.3-17.3); White Blood Count 3.2 T/CUMM (4-12)
[2017-12-29 05:59] LABS: Band Neutrophils 5 % (0-10); Hypochromasia Slight; Lymphocytes 36 % (20-55); Metamyelocytes 1 %; Microcytosis Slight; Ovalocytes Few; Platelet Estimate Decreased; Polychromasia Slight; Segmented Neutrophils 55 % (50-85); Tear Drop Cells Slight; Total Cells Counted 100
[2017-12-29] MEDS: VORICONAZOLE 200 MG TABLET PO SCH (09:28)
[2017-12-29] MEDS: MAGNESIUM OXIDE 400 MG TABLET PO SCH ×2 (09:29→20:33)
[2017-12-29] MEDS: metFORMIN 500 MG TABLET PO SCH ×2 (09:29→17:20)
[2017-12-29] MEDS: LISINOPRIL 10 MG TABLET PO SCH (09:29)
[2017-12-29] MEDS: FINASTERIDE 5 MG TABLET PO SCH (09:29)
[2017-12-29] MEDS: TRETINOIN 10 MG CAPSULE PO SCH ×2 (09:29→20:34)
[2017-12-29] MEDS: SERTRALINE 100 MG TABLET PO SCH (09:29)
[2017-12-29] MEDS: DOCUSATE SODIUM 100 MG CAPSULE PO SCH ×2 (09:29→20:33)
[2017-12-29] MEDS: ARSENIC TRIOXIDE IV SCH (09:30)
[2017-12-29] MEDS: TAMSULOSIN 0.4 MG CAPSULE PO SCH ×2 (09:30→20:34)
[2017-12-29] MEDS: DEXTROSE 5% IV SCH (09:30)
[2017-12-29] MEDS: METOPROLOL SUCCINATE XL 25 MG TABLET PO SCH (09:30)
[2017-12-29] MEDS: TEMAZEPAM 7.5 MG CAPSULE PO PRN (20:33)
[2017-12-30 05:33] LABS: Basophils % 0.7 % (0.0-0.8); Eosinophils % 1.4 % (0.00-10.9); Hematocrit 25.4 VOL% (42.0-52.0); Immature Granulocytes Absolute 0.31 #; Lymphocytes # 0.8 10*3/uL (1.4-4.0); Lymphocytes % 28.7 % (21.2-54.2); Mean Corpuscular HGB Conc 35.4 GM/DL (32-36); Mean Corpuscular Hemoglobin 35 PG (27-34); Mean Corpuscular Volume 97.3 FL (87-102); Mean Platelet Volume 10.4 FL (9.6-12.0); Monocytes # 0.1 10*3/uL (0.11-0.8); NRBC # 0.03 10*3/uL; Neutrophils # 1.5 10*3/uL (1.4-7.4); Neutrophils % 53.2 % (38.7-73.9); Red Blood Count 2.61 MC/CUMM (3.8-5.5); Red Cell Distribution Width 14.8 % (9.3-17.3); White Blood Count 2.8 T/CUMM (4-12)
[2017-12-30 05:38] LABS: Platelet Count 77 T/CUMM (130-400)
[2017-12-30 05:51] LABS: Albumin 2.9 G/DL (3.4-5.0); Bilirubin,Total 0.7 MG/DL (0.2-1.0); Calcium 8.6 MG/DL (8.5-10.1); Osmolality,Calculated 289.3 MOS/KG (273-304); Potassium 3.9 MMOL/L (3.5-5.1); Total Protein 6.2 G/DL (6.4-8.3)
[2017-12-30 06:10] LABS: Band Neutrophils 4 % (0-10); Eosinophils 1 % (0-10); Hypochromasia Slight; Lymphocytes 31 % (20-55); Metamyelocytes 2 %; Microcytosis Slight; Myelocytes 5 %; Segmented Neutrophils 55 % (50-85); Total Cells Counted 100
[2017-12-30 06:11] LABS: Ovalocytes Few; Platelet Estimate Decreased
[2017-12-30] MEDS: METOPROLOL SUCCINATE XL 25 MG TABLET PO SCH (08:48)
[2017-12-30] MEDS: FINASTERIDE 5 MG TABLET PO SCH (08:48)
[2017-12-30] MEDS: TAMSULOSIN 0.4 MG CAPSULE PO SCH ×2 (08:48→20:19)
[2017-12-30] MEDS: MAGNESIUM OXIDE 400 MG TABLET PO SCH ×2 (08:48→20:19)
[2017-12-30] MEDS: VORICONAZOLE 200 MG TABLET PO SCH (08:48)
[2017-12-30] MEDS: SERTRALINE 100 MG TABLET PO SCH (08:49)
[2017-12-30] MEDS: DOCUSATE SODIUM 100 MG CAPSULE PO SCH ×2 (08:50→20:19)
[2017-12-30] MEDS: TRETINOIN 10 MG CAPSULE PO SCH ×2 (08:50→20:19)
[2017-12-30] MEDS: LISINOPRIL 10 MG TABLET PO SCH (08:59)
[2017-12-30] MEDS: metFORMIN 500 MG TABLET PO SCH ×2 (08:59→17:29)
[2017-12-30] MEDS: LACTULOSE 20 GM/30 ML UDCUP PO PRN ×2 (09:00→15:02)
[2017-12-30] MEDS: DEXTROSE 5% IV SCH (10:26)
[2017-12-30] MEDS: ARSENIC TRIOXIDE IV SCH (10:26)
[2017-12-30] MEDS: TEMAZEPAM 7.5 MG CAPSULE PO PRN (20:19)
[2017-12-31 04:07] LABS: Eosinophils # 0.1 10*3/uL (0.0-0.87); Eosinophils % 3.9 % (0.00-10.9); Hematocrit 26.5 VOL% (42.0-52.0); Hemoglobin 9.2 GM/DL (14.0-18.0); Immature Granulocytes % 7.4 %; Immature Granulocytes Absolute 0.21 #; Lymphocytes # 0.6 10*3/uL (1.4-4.0); Lymphocytes % 21.6 % (21.2-54.2); Mean Corpuscular HGB Conc 34.7 GM/DL (32-36); Mean Corpuscular Hemoglobin 34 PG (27-34); Mean Corpuscular Volume 98.5 FL (87-102); Mean Platelet Volume 9.7 FL (9.6-12.0); Monocytes # 0.1 10*3/uL (0.11-0.8); Monocytes % 2.8 % (1.7-12.7); Neutrophils # 1.8 10*3/uL (1.4-7.4); Neutrophils % 64.3 % (38.7-73.9); Red Blood Count 2.69 MC/CUMM (3.8-5.5); Red Cell Distribution Width 14.7 % (9.3-17.3); White Blood Count 2.8 T/CUMM (4-12)
[2017-12-31 04:09] LABS: Platelet Count 91 T/CUMM (130-400)
[2017-12-31 04:57] LABS: Band Neutrophils 1 % (0-10); Eosinophils 3 % (0-10); Lymphocytes 24 % (20-55); Metamyelocytes 1 %; Myelocytes 3 %; Segmented Neutrophils 66 % (50-85); Total Cells Counted 100
[2017-12-31 04:59] LABS: Atypical Lymphocytes Few
[2017-12-31 05:00] LABS: Polychromasia Few
[2017-12-31 05:01] LABS: Hypochromasia Slight; Microcytosis 2+; Platelet Estimate Decreased
[2017-12-31 05:02] LABS: Ovalocytes 1+; Reactive Lymphocytes Few
[2017-12-31] MEDS: metFORMIN 500 MG TABLET PO SCH ×2 (08:29→17:13)
[2017-12-31] MEDS: VORICONAZOLE 200 MG TABLET PO SCH (08:30)
[2017-12-31] MEDS: FINASTERIDE 5 MG TABLET PO SCH (08:30)
[2017-12-31] MEDS: METOPROLOL SUCCINATE XL 25 MG TABLET PO SCH (08:30)
[2017-12-31] MEDS: DOCUSATE SODIUM 100 MG CAPSULE PO SCH ×2 (08:30→21:33)
[2017-12-31] MEDS: TAMSULOSIN 0.4 MG CAPSULE PO SCH ×2 (08:31→21:34)
[2017-12-31] MEDS: LISINOPRIL 10 MG TABLET PO SCH (08:31)
[2017-12-31] MEDS: SERTRALINE 100 MG TABLET PO SCH (08:31)
[2017-12-31] MEDS: MAGNESIUM OXIDE 400 MG TABLET PO SCH ×2 (08:31→21:34)
[2017-12-31] MEDS: DEXAMETHASONE 4 MG TABLET PO SCH ×2 (08:32→21:33)
[2017-12-31] MEDS: TRETINOIN 10 MG CAPSULE PO SCH ×2 (08:32→21:39)
[2017-12-31] MEDS: DEXTROSE 5% IV SCH (10:38)
[2017-12-31] MEDS: ARSENIC TRIOXIDE IV SCH (10:38)
[2017-12-31] MEDS ORDERED: ALTEPLASE 2 MG VIAL IV ONE (17:33)
[2018-01-01 05:15] LABS: Albumin 3.1 G/DL (3.4-5.0); Bilirubin,Total 0.6 MG/DL (0.2-1.0); Calcium 8.3 MG/DL (8.5-10.1); Osmolality,Calculated 294.4 MOS/KG (273-304); Potassium 4.5 MMOL/L (3.5-5.1); Total Protein 6.1 G/DL (6.4-8.3)
[2018-01-01 05:17] LABS: Eosinophils % 0.3 % (0.00-10.9); Hematocrit 26.3 VOL% (42.0-52.0); Immature Granulocytes % 6.5 %; Immature Granulocytes Absolute 0.21 #; Lymphocytes # 0.4 10*3/uL (1.4-4.0); Lymphocytes % 13.7 % (21.2-54.2); Mean Corpuscular HGB Conc 34.2 GM/DL (32-36); Mean Corpuscular Hemoglobin 34 PG (27-34); Mean Corpuscular Volume 98.5 FL (87-102); Mean Platelet Volume 10.6 FL (9.6-12.0); Monocytes # 0.1 10*3/uL (0.11-0.8); Monocytes % 1.6 % (1.7-12.7); NRBC # 0.02 10*3/uL; Neutrophils # 2.5 10*3/uL (1.4-7.4); Neutrophils % 77.9 % (38.7-73.9); Platelet Count 101 T/CUMM (130-400); Red Blood Count 2.67 MC/CUMM (3.8-5.5); Red Cell Distribution Width 14.4 % (9.3-17.3); White Blood Count 3.2 T/CUMM (4-12)
[2018-01-01 06:30] LABS: Anisocytosis 1+; Band Neutrophils 8 % (0-10); Lymphocytes 29 % (20-55); Macrocytosis 3+; Platelet Estimate Decreased; Segmented Neutrophils 62 % (50-85); Total Cells Counted 100
[2018-01-01] MEDS: metFORMIN 500 MG TABLET PO SCH ×2 (08:46→17:26)
[2018-01-01] MEDS: DOCUSATE SODIUM 100 MG CAPSULE PO SCH ×2 (08:47→20:39)
[2018-01-01] MEDS: DEXAMETHASONE 4 MG TABLET PO SCH ×2 (08:47→20:39)
[2018-01-01] MEDS: VORICONAZOLE 200 MG TABLET PO SCH (08:48)
[2018-01-01] MEDS: METOPROLOL SUCCINATE XL 25 MG TABLET PO SCH (08:48)
[2018-01-01] MEDS: MAGNESIUM OXIDE 400 MG TABLET PO SCH ×2 (08:48→20:40)
[2018-01-01] MEDS: FINASTERIDE 5 MG TABLET PO SCH (08:49)
[2018-01-01] MEDS: TAMSULOSIN 0.4 MG CAPSULE PO SCH ×2 (08:57→20:40)
[2018-01-01] MEDS: SERTRALINE 100 MG TABLET PO SCH (08:57)
[2018-01-01] MEDS: LISINOPRIL 10 MG TABLET PO SCH (08:57)
[2018-01-01] MEDS: TRETINOIN 10 MG CAPSULE PO SCH ×2 (08:58→20:38)
[2018-01-01] MEDS: ARSENIC TRIOXIDE IV SCH (12:21)
[2018-01-01] MEDS: DEXTROSE 5% IV SCH (12:21)
[2018-01-01] MEDS: TEMAZEPAM 7.5 MG CAPSULE PO PRN (20:40)
[2018-01-02 05:35] LABS: Eosinophils % 0.3 % (0.00-10.9); Hematocrit 25.1 VOL% (42.0-52.0); Hemoglobin 8.4 GM/DL (14.0-18.0); Immature Granulocytes % 7.7 %; Immature Granulocytes Absolute 0.28 #; Lymphocytes # 0.5 10*3/uL (1.4-4.0); Lymphocytes % 12.3 % (21.2-54.2); Mean Corpuscular HGB Conc 33.5 GM/DL (32-36); Mean Corpuscular Hemoglobin 34 PG (27-34); Mean Corpuscular Volume 101.2 FL (87-102); Mean Platelet Volume 10.5 FL (9.6-12.0); Monocytes # 0.1 10*3/uL (0.11-0.8); Monocytes % 3.8 % (1.7-12.7); Neutrophils # 2.8 10*3/uL (1.4-7.4); Neutrophils % 75.9 % (38.7-73.9); Platelet Count 102 T/CUMM (130-400); Red Blood Count 2.48 MC/CUMM (3.8-5.5); Red Cell Distribution Width 14.9 % (9.3-17.3); White Blood Count 3.7 T/CUMM (4-12)
[2018-01-02 07:51] LABS: Band Neutrophils 2 % (0-10); Lymphocytes 4 % (20-55); Segmented Neutrophils 88 % (50-85); Total Cells Counted 100
[2018-01-02 07:52] LABS: Hypochromasia 1+; Macrocytosis 1+; Platelet Estimate Decreased
[2018-01-02] MEDS: SERTRALINE 100 MG TABLET PO SCH (08:53)
[2018-01-02] MEDS: TRETINOIN 10 MG CAPSULE PO SCH ×2 (08:53→21:05)
[2018-01-02] MEDS: DOCUSATE SODIUM 100 MG CAPSULE PO SCH ×2 (08:53→21:05)
[2018-01-02] MEDS: VORICONAZOLE 200 MG TABLET PO SCH (08:53)
[2018-01-02] MEDS: LISINOPRIL 10 MG TABLET PO SCH (08:53)
[2018-01-02] MEDS: METOPROLOL SUCCINATE XL 25 MG TABLET PO SCH (08:53)
[2018-01-02] MEDS: metFORMIN 500 MG TABLET PO SCH ×2 (08:54→17:35)
[2018-01-02] MEDS: DEXAMETHASONE 4 MG TABLET PO SCH ×2 (08:54→21:05)
[2018-01-02] MEDS: FINASTERIDE 5 MG TABLET PO SCH (08:54)
[2018-01-02] MEDS: TAMSULOSIN 0.4 MG CAPSULE PO SCH ×2 (08:54→21:05)
[2018-01-02] MEDS: MAGNESIUM OXIDE 400 MG TABLET PO SCH ×2 (08:54→21:05)
[2018-01-02] MEDS: DEXTROSE 5% IV SCH (14:33)
[2018-01-02] MEDS: ARSENIC TRIOXIDE IV SCH (14:33)
[2018-01-02] MEDS: TEMAZEPAM 7.5 MG CAPSULE PO PRN (21:05)
[2018-01-03 04:53] LABS: Hematocrit 25.3 VOL% (42.0-52.0); Hemoglobin 8.5 GM/DL (14.0-18.0); Immature Granulocytes % 5.5 %; Immature Granulocytes Absolute 0.21 #; Lymphocytes # 0.4 10*3/uL (1.4-4.0); Lymphocytes % 11.2 % (21.2-54.2); Mean Corpuscular HGB Conc 33.6 GM/DL (32-36); Mean Corpuscular Hemoglobin 34 PG (27-34); Mean Corpuscular Volume 101.2 FL (87-102); Mean Platelet Volume 10.7 FL (9.6-12.0); Monocytes # 0.2 10*3/uL (0.11-0.8); Monocytes % 4.9 % (1.7-12.7); Neutrophils % 78.4 % (38.7-73.9); Platelet Count 114 T/CUMM (130-400); Red Cell Distribution Width 14.7 % (9.3-17.3); White Blood Count 3.8 T/CUMM (4-12)
[2018-01-03 05:27] LABS: Albumin 3.3 G/DL (3.4-5.0); Bilirubin,Total 0.6 MG/DL (0.2-1.0); Calcium 8.3 MG/DL (8.5-10.1); Osmolality,Calculated 294.5 MOS/KG (273-304); Potassium 4.5 MMOL/L (3.5-5.1)
[2018-01-03 06:16] LABS: Band Neutrophils 2 % (0-10); Lymphocytes 19 % (20-55); Segmented Neutrophils 74 % (50-85); Total Cells Counted 100
[2018-01-03 06:27] LABS: Macrocytosis 2+; Platelet Estimate Decreased
[2018-01-03] MEDS: TRETINOIN 10 MG CAPSULE PO SCH ×2 (08:50→21:41)
[2018-01-03] MEDS: LISINOPRIL 10 MG TABLET PO SCH (08:50)
[2018-01-03] MEDS: TAMSULOSIN 0.4 MG CAPSULE PO SCH ×2 (08:50→21:42)
[2018-01-03] MEDS: MAGNESIUM OXIDE 400 MG TABLET PO SCH ×2 (08:50→21:41)
[2018-01-03] MEDS: DOCUSATE SODIUM 100 MG CAPSULE PO SCH ×2 (08:50→21:41)
[2018-01-03] MEDS: VORICONAZOLE 200 MG TABLET PO SCH (08:50)
[2018-01-03] MEDS: DEXAMETHASONE 4 MG TABLET PO SCH ×2 (08:50→21:42)
[2018-01-03] MEDS: SERTRALINE 100 MG TABLET PO SCH (08:51)
[2018-01-03] MEDS: metFORMIN 500 MG TABLET PO SCH ×2 (08:51→16:43)
[2018-01-03] MEDS: METOPROLOL SUCCINATE XL 25 MG TABLET PO SCH (08:51)
[2018-01-03] MEDS: FINASTERIDE 5 MG TABLET PO SCH (08:51)
[2018-01-03] MEDS: ARSENIC TRIOXIDE IV SCH (10:27)
[2018-01-03] MEDS: DEXTROSE 5% IV SCH (10:27)
[2018-01-03] MEDS: TEMAZEPAM 7.5 MG CAPSULE PO PRN (21:41)
[2018-01-04 05:42] LABS: Hematocrit 26.2 VOL% (42.0-52.0); Hemoglobin 8.9 GM/DL (14.0-18.0); Lymphocytes # 0.4 10*3/uL (1.4-4.0); Lymphocytes % 12.8 % (21.2-54.2); Mean Corpuscular Hemoglobin 34 PG (27-34); Mean Corpuscular Volume 100.4 FL (87-102); Mean Platelet Volume 10.6 FL (9.6-12.0); Monocytes # 0.1 10*3/uL (0.11-0.8); Monocytes % 4.2 % (1.7-12.7); NRBC # 0.02 10*3/uL; Neutrophils # 2.7 10*3/uL (1.4-7.4); Platelet Count 129 T/CUMM (130-400); Red Blood Count 2.61 MC/CUMM (3.8-5.5); Red Cell Distribution Width 14.7 % (9.3-17.3); White Blood Count 3.4 T/CUMM (4-12)
[2018-01-04] MEDS: TRETINOIN 10 MG CAPSULE PO SCH ×2 (09:09→20:37)
[2018-01-04] MEDS: DOCUSATE SODIUM 100 MG CAPSULE PO SCH ×2 (09:09→20:36)
[2018-01-04] MEDS: MAGNESIUM OXIDE 400 MG TABLET PO SCH ×2 (09:09→20:36)
[2018-01-04] MEDS: DEXAMETHASONE 4 MG TABLET PO SCH (09:10)
[2018-01-04] MEDS: metFORMIN 500 MG TABLET PO SCH ×2 (09:10→17:12)
[2018-01-04] MEDS: METOPROLOL SUCCINATE XL 25 MG TABLET PO SCH (09:10)
[2018-01-04] MEDS: VORICONAZOLE 200 MG TABLET PO SCH (09:11)
[2018-01-04] MEDS: LISINOPRIL 10 MG TABLET PO SCH (09:11)
[2018-01-04] MEDS: TAMSULOSIN 0.4 MG CAPSULE PO SCH ×2 (09:11→20:36)
[2018-01-04] MEDS: FINASTERIDE 5 MG TABLET PO SCH (09:11)
[2018-01-04] MEDS: SERTRALINE 100 MG TABLET PO SCH (09:11)
[2018-01-04] MEDS: DEXTROSE 5% IV SCH (10:07)
[2018-01-04] MEDS: ARSENIC TRIOXIDE IV SCH (10:07)
[2018-01-04] MEDS: TEMAZEPAM 7.5 MG CAPSULE PO PRN (20:36)
[2018-01-05 05:02] LABS: Eosinophils % 0.8 % (0.00-10.9); Hematocrit 24.9 VOL% (42.0-52.0); Hemoglobin 8.8 GM/DL (14.0-18.0); Immature Granulocytes % 0.8 %; Immature Granulocytes Absolute 0.02 #; Lymphocytes # 0.6 10*3/uL (1.4-4.0); Lymphocytes % 23.9 % (21.2-54.2); Mean Corpuscular HGB Conc 35.3 GM/DL (32-36); Mean Corpuscular Hemoglobin 34 PG (27-34); Mean Corpuscular Volume 97.3 FL (87-102); Mean Platelet Volume 10.6 FL (9.6-12.0); Monocytes # 0.2 10*3/uL (0.11-0.8); NRBC # 0.02 10*3/uL; Neutrophils # 1.6 10*3/uL (1.4-7.4); Neutrophils % 67.5 % (38.7-73.9); Platelet Count 129 T/CUMM (130-400); Red Blood Count 2.56 MC/CUMM (3.8-5.5); Red Cell Distribution Width 14.7 % (9.3-17.3); White Blood Count 2.4 T/CUMM (4-12)
[2018-01-05 05:26] LABS: Albumin 2.9 G/DL (3.4-5.0); Bilirubin,Total 0.4 MG/DL (0.2-1.0); Calcium 7.8 MG/DL (8.5-10.1); Osmolality,Calculated 286.8 MOS/KG (273-304); Potassium 4.6 MMOL/L (3.5-5.1)
[2018-01-05] MEDS: METOPROLOL SUCCINATE XL 25 MG TABLET PO SCH (08:39)
[2018-01-05] MEDS: MAGNESIUM OXIDE 400 MG TABLET PO SCH ×2 (08:39→20:51)
[2018-01-05] MEDS: metFORMIN 500 MG TABLET PO SCH ×2 (08:39→16:58)
[2018-01-05] MEDS: VORICONAZOLE 200 MG TABLET PO SCH (08:39)
[2018-01-05] MEDS: TRETINOIN 10 MG CAPSULE PO SCH ×2 (08:39→20:51)
[2018-01-05] MEDS: SERTRALINE 100 MG TABLET PO SCH (08:40)
[2018-01-05] MEDS: TAMSULOSIN 0.4 MG CAPSULE PO SCH ×2 (08:40→20:51)
[2018-01-05] MEDS: DEXAMETHASONE 4 MG TABLET PO SCH (08:40)
[2018-01-05] MEDS: LISINOPRIL 10 MG TABLET PO SCH (08:40)
[2018-01-05] MEDS: DOCUSATE SODIUM 100 MG CAPSULE PO SCH ×2 (08:40→20:55)
[2018-01-05] MEDS: FINASTERIDE 5 MG TABLET PO SCH (08:41)
[2018-01-05] MEDS: DEXTROSE 5% IV SCH (10:13)
[2018-01-05] MEDS: ARSENIC TRIOXIDE IV SCH (10:13)
[2018-01-05] MEDS: TEMAZEPAM 7.5 MG CAPSULE PO PRN (20:51)
[2018-01-06 06:02] LABS: Hematocrit 25.4 VOL% (42.0-52.0); Hemoglobin 8.9 GM/DL (14.0-18.0); Immature Granulocytes Absolute 0.04 #; Lymphocytes # 0.5 10*3/uL (1.4-4.0); Lymphocytes % 26.3 % (21.2-54.2); Mean Corpuscular Hemoglobin 34 PG (27-34); Mean Corpuscular Volume 96.9 FL (87-102); Mean Platelet Volume 10.1 FL (9.6-12.0); Monocytes # 0.1 10*3/uL (0.11-0.8); Monocytes % 6.1 % (1.7-12.7); Neutrophils # 1.3 10*3/uL (1.4-7.4); Neutrophils % 64.6 % (38.7-73.9); Platelet Count 155 T/CUMM (130-400); Red Blood Count 2.62 MC/CUMM (3.8-5.5); Red Cell Distribution Width 14.9 % (9.3-17.3)
[2018-01-06 06:28] LABS: Anisocytosis Slight; Band Neutrophils 1 % (0-10); Lymphocytes 29 % (20-55); Macrocytosis 2+; Platelet Estimate Normal; Segmented Neutrophils 66 % (50-85); Total Cells Counted 100
[2018-01-06] MEDS: VORICONAZOLE 200 MG TABLET PO SCH (09:19)
[2018-01-06] MEDS: LISINOPRIL 10 MG TABLET PO SCH (09:19)
[2018-01-06] MEDS: metFORMIN 500 MG TABLET PO SCH ×2 (09:19→16:58)
[2018-01-06] MEDS: SERTRALINE 100 MG TABLET PO SCH (09:19)
[2018-01-06] MEDS: FINASTERIDE 5 MG TABLET PO SCH (09:19)
[2018-01-06] MEDS: MAGNESIUM OXIDE 400 MG TABLET PO SCH ×2 (09:19→21:08)
[2018-01-06] MEDS: METOPROLOL SUCCINATE XL 25 MG TABLET PO SCH (09:19)
[2018-01-06] MEDS: TRETINOIN 10 MG CAPSULE PO SCH ×2 (09:20→21:09)
[2018-01-06] MEDS: TAMSULOSIN 0.4 MG CAPSULE PO SCH ×2 (09:20→21:09)
[2018-01-06] MEDS: DOCUSATE SODIUM 100 MG CAPSULE PO SCH ×2 (09:20→21:08)
[2018-01-06] MEDS: DEXAMETHASONE 4 MG TABLET PO SCH (09:20)
[2018-01-06] MEDS: DEXTROSE 5% IV SCH (12:36)
[2018-01-06] MEDS: ARSENIC TRIOXIDE IV SCH (12:36)
[2018-01-06] MEDS: TEMAZEPAM 7.5 MG CAPSULE PO PRN (21:09)
[2018-01-07 05:16] LABS: Eosinophils % 0.5 % (0.00-10.9); Hematocrit 26.8 VOL% (42.0-52.0); Hemoglobin 9.3 GM/DL (14.0-18.0); Immature Granulocytes Absolute 0.02 #; Lymphocytes # 0.5 10*3/uL (1.4-4.0); Mean Corpuscular HGB Conc 34.7 GM/DL (32-36); Mean Corpuscular Hemoglobin 34 PG (27-34); Mean Corpuscular Volume 98.9 FL (87-102); Mean Platelet Volume 10.2 FL (9.6-12.0); Monocytes # 0.1 10*3/uL (0.11-0.8); Monocytes % 4.9 % (1.7-12.7); Neutrophils # 1.4 10*3/uL (1.4-7.4); Neutrophils % 69.6 % (38.7-73.9); Platelet Count 166 T/CUMM (130-400); Red Blood Count 2.71 MC/CUMM (3.8-5.5); Red Cell Distribution Width 14.9 % (9.3-17.3)
[2018-01-07] MEDS: TRETINOIN 10 MG CAPSULE PO SCH ×2 (08:41→20:43)
[2018-01-07] MEDS: METOPROLOL SUCCINATE XL 25 MG TABLET PO SCH (08:42)
[2018-01-07] MEDS: DOCUSATE SODIUM 100 MG CAPSULE PO SCH ×2 (08:42→20:44)
[2018-01-07] MEDS: metFORMIN 500 MG TABLET PO SCH ×2 (08:42→17:35)
[2018-01-07] MEDS: MAGNESIUM OXIDE 400 MG TABLET PO SCH ×2 (08:42→20:44)
[2018-01-07] MEDS: LISINOPRIL 10 MG TABLET PO SCH (08:42)
[2018-01-07] MEDS: TAMSULOSIN 0.4 MG CAPSULE PO SCH ×2 (08:42→20:43)
[2018-01-07] MEDS: SERTRALINE 100 MG TABLET PO SCH (08:42)
[2018-01-07] MEDS: VORICONAZOLE 200 MG TABLET PO SCH (08:42)
[2018-01-07] MEDS: FINASTERIDE 5 MG TABLET PO SCH (08:43)
[2018-01-07] MEDS: DEXAMETHASONE 4 MG TABLET PO SCH (08:43)
[2018-01-07] MEDS: ARSENIC TRIOXIDE IV SCH (10:25)
[2018-01-07] MEDS: DEXTROSE 5% IV SCH (10:25)
[2018-01-07] MEDS: TEMAZEPAM 7.5 MG CAPSULE PO PRN (20:43)
[2018-01-08 04:47] LABS: Eosinophils % 0.5 % (0.00-10.9); Hematocrit 26.8 VOL% (42.0-52.0); Hemoglobin 9.3 GM/DL (14.0-18.0); Immature Granulocytes % 1.1 %; Immature Granulocytes Absolute 0.02 #; Lymphocytes # 0.5 10*3/uL (1.4-4.0); Lymphocytes % 27.8 % (21.2-54.2); Mean Corpuscular HGB Conc 34.7 GM/DL (32-36); Mean Corpuscular Hemoglobin 34 PG (27-34); Mean Corpuscular Volume 98.2 FL (87-102); Mean Platelet Volume 10.1 FL (9.6-12.0); Monocytes # 0.1 10*3/uL (0.11-0.8); Monocytes % 5.3 % (1.7-12.7); Neutrophils # 1.2 10*3/uL (1.4-7.4); Neutrophils % 65.3 % (38.7-73.9); Platelet Count 153 T/CUMM (130-400); Red Blood Count 2.73 MC/CUMM (3.8-5.5); Red Cell Distribution Width 15.4 % (9.3-17.3); White Blood Count 1.9 T/CUMM (4-12)
[2018-01-08 05:16] LABS: Bilirubin,Total 0.8 MG/DL (0.2-1.0); Calcium 8.6 MG/DL (8.5-10.1); Osmolality,Calculated 286.5 MOS/KG (273-304); Potassium 4.2 MMOL/L (3.5-5.1); Total Protein 6.1 G/DL (6.4-8.3)
[2018-01-08 05:28] LABS: Hypochromasia 1+; Lymphocytes 25 % (20-55); Macrocytosis Slight; Segmented Neutrophils 68 % (50-85); Total Cells Counted 100
[2018-01-08 05:29] LABS: Ovalocytes Slight; Platelet Estimate Adequate
[2018-01-08] MEDS: LISINOPRIL 10 MG TABLET PO SCH (08:24)
[2018-01-08] MEDS: DEXAMETHASONE 4 MG TABLET PO SCH (08:24)
[2018-01-08] MEDS: SERTRALINE 100 MG TABLET PO SCH (08:24)
[2018-01-08] MEDS: metFORMIN 500 MG TABLET PO SCH (08:24)
[2018-01-08] MEDS: DOCUSATE SODIUM 100 MG CAPSULE PO SCH (08:25)
[2018-01-08] MEDS: METOPROLOL SUCCINATE XL 25 MG TABLET PO SCH (08:25)
[2018-01-08] MEDS: TAMSULOSIN 0.4 MG CAPSULE PO SCH (08:25)
[2018-01-08] MEDS: MAGNESIUM OXIDE 400 MG TABLET PO SCH (08:25)
[2018-01-08] MEDS: FINASTERIDE 5 MG TABLET PO SCH (08:25)
[2018-01-08] MEDS: VORICONAZOLE 200 MG TABLET PO SCH (08:26)
[2018-01-08] MEDS: TRETINOIN 10 MG CAPSULE PO SCH (08:26)
[2018-01-08] MEDS ORDERED: ARSENIC TRIOXIDE IV SCH (09:00)
[2018-01-08] MEDS ORDERED: DEXTROSE 5% IV SCH (09:00)
[2018-01-08 12:21] VITALS: BP 144/74
[2018-01-08] MEDS ORDERED: TRETINOIN 10 MG CAPSULE PO ONE (13:00)
== END 2018-01-08 14:25 | disposition home or self-care (01) | DRG 839 ==
LOC: N.4E 11:27
PROVIDERS: ADMIT Specialist; ATTEND Specialist